=== PATIENT | female | born 1930 | race Caucasian/White ===

== ENCOUNTER 2017-02-12 12:26 | Day surgery (SDC) | payer MEDICARE, OTHER ==
[~2017-02-12 12:26] MED LIST: LOSA25TA31 PO; TOPR50TA PO
[2017-02-12 13:12] VITALS: BP 207/97; PULSE 78; RESP 18; TEMP 98.1; O2SAT 97
[2017-02-12] MEDS ORDERED: MEDR4TAB PO (13:12)
[2017-02-12] MEDS ORDERED: CENTCHW4 CHEW (13:12)
[2017-02-12] MEDS ORDERED: HYDR-3516 PO (13:12)
[2017-02-12] MEDS ORDERED: LACTCAP8 PO (13:12)
[2017-02-12] MEDS ORDERED: TOPR50TA PO (13:12)
[2017-02-12] MEDS ORDERED: COZA100T PO (13:12)
[2017-02-12] MEDS ORDERED: VANCOMYCIN INJ 750 MG in SODIUM CHLOR 0.9% 250 ML INJ 250 ML IV ONE (14:00)
[2017-02-12] MEDS ORDERED: SODIUM CHLORIDE 0.9% FLUSH 10 ML FLUSH IV FLUSH PRN (14:45)
[2017-02-13] MEDS ORDERED: SODIUM CHLORIDE 0.9% FLUSH 10 ML FLUSH IV FLUSH SCH (09:00)
--- NOTE | 2017-03-01 23:26 | RADRPT ---
EXAM DATE/TIME: 02/12/2017 14:57 [place] COMPARISON: No previous studies available for comparison. INDICATIONS : Patient with sinus infection needs manager terminal antibx. MEDICAL HISTORY : 1. RA 2. Osteoporosis 3. IBS 4. Vulvular ca 5HTN SURGICAL HISTORY : 1. lt hip replacement 2. Hystere 3. Bladder tack 4. Hernia repair ENCOUNTER: Initial ACUITY: 1 week PAIN SCORE: 0/10 FLUORO TIME: 0.2 minutes IMAGE SERIES: 1 ACCESS: Left basilic vein DEVICE(S): 1.) 4 [place] single lumen 37 cm Xcela Power PICC PROCEDURE : 1. Ultrasound guidance for venous catheterization. 2. Fluoroscopic guidance. 3. Ultrasound & fluoroscopic guided central venous Power PICC line placement. The risks, benefits and alternatives to the procedure were explained and verbal and written consent w as obtained. The site was prepped in sterile fashion. Full sterile technique was used, including ca p, mask, sterile gloves and gown and a large sterile sheet. Hand hygiene and 2% chlorhexidine prep w as utilized per protocol for cutaneous antisepsis with appropriate dry time for site. The skin and s ubcutaneous tissues were infiltrated with local anesthetic solution. Under direct ultrasound guidance, a suitable vein was accessed and a measuring guidewire was introduc ed and positioned in the central venous system. The ultrasound images depicting access guidance were saved and stored to PACS for permanent record. A Power Injectable PICC line was cut to prescribed length and introduced, positioned with tip at the cavoatrial junction level. The line was flushed and secured per protocol. CONCLUSION: 1. Uncomplicated central venous Power PICC line placement. 2. The PICC line can be used immediately. Thierno Mitchell MD on March 01, 2017 at 23:24 Board Certified Radiologist. This report was verified electronically.
== END 2017-02-12 15:55 | disposition home or self-care (01) ==
LOC: HROP 12:26 → HRIP 12:27 → HROP 15:55
PROVIDERS: ATTEND Nurse Practitioner Acute Care
DX: J01.91 Acute recurrent sinusitis, unspecified (principal); M81.0 Age-related osteoporosis without current pathological fracture; K58.9 Irritable bowel syndrome, unspecified; I10 Essential (primary) hypertension; M06.9 Rheumatoid arthritis, unspecified
CPT/HCPCS: 36569; 76937; 77001; 96365; C1751; J1642; J3370; J7050